=== PATIENT | female | born 1950 | race Caucasian/White ===

== ENCOUNTER 2018-09-08 16:24 | Inpatient (IN) | payer OTHER ==
[2018-09-08] MEDS ORDERED: ONDANSETRON 4 MG/2 ML VIAL ONE (17:02)
[2018-09-08] MEDS ORDERED: MORPHINE 4 MG/ML SYR ONE (17:02)
[2018-09-08 17:09] LABS: Absolute Lymphocytes (CBC) 2.2 K/uL (0.7-4.9); Absolute Monocytes 0.5 K/uL (0.1-1.3); Absolute Neutrophil 4.9 K/uL (1.8-8.0); Basophils % 0.8 % (0-1.3); Eosinophils % 1.9 % (0-4.4); Hematocrit 40.4 % (36.0-45.0); Lymphocytes % 28.2 % (15.3-44.8); MCH 36.6 pg (27.0-35.0); MCV 104.4 fL (80-100); MPV 7.9 fL (7.6-11.3); Monocytes % 6.4 % (3.3-12.3); RBC Red Blood Cell Count 3.86 M/uL (3.86-4.86)
[2018-09-08 17:10] LABS: Protime INR 0.98
[2018-09-08] MEDS ORDERED: NA CHLORIDE 0.9% 1,000 ML ONE (17:23)
[2018-09-08 17:35] LABS: ALT/SGPT 21 U/L (12-78); AST/SGOT 20 U/L (15-37); Albumin 3.9 g/dL (3.4-5.0); Alkaline Phosphatase 68 U/L (45-117); BUN Blood Urea Nitrogen 21 mg/dL (7-18); Bicarbonate 25 mmol/L (21-32); Bilirubin Direct < 0.1 mg/dL (0-0.2); Bilirubin Total 0.4 mg/dL (0.2-1.0); Glucose Level 98 mg/dL (74-106); Magnesium 2.3 mg/dL (1.8-2.4); NT PRO-BNP 175 pg/mL (<125); Potassium 4.8 mmol/L (3.5-5.1); Protein, Total 8.2 g/dL (6.4-8.2); Sodium Level 138 mmol/L (136-145); Troponin (Emerg Dept Use Only) < 0.02 ng/mL (0.0-0.045)
[2018-09-08] MEDS ORDERED: HYDROMORPHONE HCL 0.5 MG/0.5 ML INJ ONE ×2 (18:15→19:41)
[2018-09-08] MEDS ORDERED: TETANUS & DIPHTHERIA TOX,ADULT 0.5 ML VIAL ONE (18:15)
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
[2018-09-08] MEDS ORDERED: ACETAMINOPHEN 500 MG TAB PO PRN (19:31)
[2018-09-08] MEDS ORDERED: ONDANSETRON 4 MG/2 ML VIAL IV PRN (19:31)
[2018-09-08] MEDS ORDERED: HYDRALAZINE HCL 20 MG/ML VIAL IV PRN (20:15)
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
[2018-09-08 21:11] LABS: Urine Blood TRACE (NEG); Urine Glucose NEGATIVE (NEG); Urine Protein NEGATIVE (NEG); Urine Specific Gravity 1.015 (1.005-1.030)
[2018-09-08 21:23] VITALS: BMI 26.5
[2018-09-08] MEDS: MORPHINE 2 MG/ML SYR IV PRN (21:37)
[2018-09-08] MEDS: D5 0.45 NS 1,000 ML IV SCH (21:37)
[2018-09-08] MEDS ORDERED: TRAZODONE 50 MG TABLET PO PRN (22:18)
[2018-09-09] MEDS: MORPHINE 2 MG/ML SYR IV PRN ×4 (01:10→19:45)
--- NOTE | 2018-09-09 04:17 | EKG ---
Test Date: 2018-09-08 Test Time: 17:10:25 [employer] Art Teacher: LENA MEASUREMENT RESULTS: Intervals: Rate: 94 MD: 142 QRSD: 78 QT: 372 QTc: 465 [place]: P: 79 MD: 142 QRS: 80 T: 60 INTERPRETIVE STATEMENTS: Normal sinus rhythm Possible Left atrial enlargement Borderline ECG No previous ECG available for comparison Electronically Signed On 09-09-18 04:17:06 CDT by Genaro Caputo
[2018-09-09] MEDS: D5 0.45 NS 1,000 ML IV SCH ×3 (05:51→18:27)
[2018-09-09 06:06] LABS: Absolute Lymphocytes (CBC) 1.3 K/uL (0.7-4.9); Absolute Monocytes 0.7 K/uL (0.1-1.3); Absolute Neutrophil 6.3 K/uL (1.8-8.0); Basophils % 0.4 % (0-1.3); Eosinophils % 0.7 % (0-4.4); Hematocrit 38.2 % (36.0-45.0); Lymphocytes % 15.1 % (15.3-44.8); MCH 36.7 pg (27.0-35.0); MCV 104.4 fL (80-100); Monocytes % 8.7 % (3.3-12.3); RBC Red Blood Cell Count 3.66 M/uL (3.86-4.86)
[2018-09-09 06:17] LABS: Albumin 3.3 g/dL (3.4-5.0); Bilirubin Total 0.4 mg/dL (0.2-1.0); Potassium 4.3 mmol/L (3.5-5.1); Protein, Total 7.4 g/dL (6.4-8.2)
[2018-09-09] MEDS ORDERED: TRANEXAMIC ACID 1,000 MG in NA CHLORIDE 0.9% 50 ML IV ONE (13:09)
[2018-09-09] MEDS ORDERED: Ringers Lactate 1,000 ML IV ONE ×2 (14:14→16:10)
[2018-09-09] MEDS ORDERED: CEFAZOLIN/SWI 1gm 1 GM/10 ML SYR ONE (14:25)
[2018-09-09] MEDS ORDERED: SUCCINYLCHOLINE 20 MG/ML (10 ML) IV ONE (15:02)
[2018-09-09] MEDS ORDERED: ROCURONIUM 50 MG/5 ML VIAL IV ONE (15:08)
[2018-09-09] MEDS ORDERED: PROPOFOL 200 MG/20 ML VIAL IV ONE (15:08)
[2018-09-09] MEDS ORDERED: FENTANYL CITR 250 MCG/5 ML ONE (15:08)
[2018-09-09] MEDS ORDERED: DOCUSATE NA 100 MG CAP PO PRN (15:28)
[2018-09-09] MEDS ORDERED: MORPHINE/NS PCA 50 MG/50 ML PCA.SYRING IV PRN (15:28)
[2018-09-09] MEDS ORDERED: NALOXONE 0.4 MG/ML VIAL IV PRN (15:28)
[2018-09-09] MEDS ORDERED: ONDANSETRON 4 MG/2 ML VIAL IV PRN (15:28)
[2018-09-09] MEDS ORDERED: ONDANSETRON HCL 40 MG/20 ML VIAL ONE (16:36)
[2018-09-09] MEDS ORDERED: GLYCOPYRROLATE 0.2 MG/ML SYR ONE (16:36)
[2018-09-09] MEDS ORDERED: PROMETHAZINE 25 MG/ML VIAL ONE (17:25)
[2018-09-09 17:37] LABS: Hematocrit 39.1 % (36.0-45.0)
[2018-09-09] MEDS ORDERED: CEFAZOLIN/NS 1gm 1 GM/50 ML BAG IVPB SCH (18:00)
[2018-09-09] MEDS: CEFAZOLIN/SWI 1gm 1 GM/10 ML SYR IV SCH ×2 (18:32→23:37)
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
--- NOTE | 2018-09-09 19:21 | RAD REPORT ---
EXAM DESCRIPTION: RAD - Pelvis - 09/09/2018 6:21 pm CLINICAL HISTORY: Left femoral fracture FINDINGS: Left hip arthroplasty has been performed. Prosthesis is in good position. No dislocation i s noted
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
--- NOTE | 2018-09-10 01:36 | OP ---
Surgeon: Livan Thomas MD Date of Service: 09/09/2018 Preoperative Diagnosis: Left femoral neck fracture. Postoperative Diagnosis: Left femoral neck fracture. Procedure Performed: Left uncemented hemiarthroplasty. Membership Sales Manager: RENALDO Rios. Complications: None. Disposition: Recovery room, stable. Procedure In Detail: The patient was taken to the operative suite, placed in supine position, induced anesthesia. Left hip was prepped and draped in usual sterile fashion. Access through posterior approach to the hip. Hemostasis was verified. Tensor fascia trae was incised. Muscle was split longitudinally. External rotators were elevated subperiosteally. Lateralized box section created. Still reaming and broaching for a maximum of 12 mm stem. The ball measured a 43 mm and standard offset was appropriate. Permanent implant was performed. A layered closure was performed, followed by application of a sterile dressing. The patient tolerated the procedure well, was reversed from anesthesia, and taken to recovery room in stable condition. AIDE/KAILEY Voice ID: [id number] Report ID: [id number] ROSELINE
[2018-09-10] MEDS: D5 0.45 NS 1,000 ML IV SCH ×2 (05:02→11:37)
[2018-09-10] MEDS: CEFAZOLIN/SWI 1gm 1 GM/10 ML SYR IV SCH (05:02)
[2018-09-10 06:49] LABS: Hematocrit 35.9 % (36.0-45.0)
[2018-09-10 07:04] LABS: Albumin 2.9 g/dL (3.4-5.0); Bilirubin Total 0.3 mg/dL (0.2-1.0); Potassium 4.2 mmol/L (3.5-5.1)
[2018-09-10] MEDS: HYDROCODONE/APAP 7.5/325 MG TAB PO PRN (08:46)
[2018-09-10] MEDS: AMLODIPINE 5 MG TAB PO SCH (08:46)
[2018-09-10] MEDS: LISINOPRIL 20 MG TAB PO SCH (08:47)
[2018-09-10] MEDS: CITALOPRAM 10 MG TABLET PO SCH (08:48)
[2018-09-10] MEDS: RIVAROXABAN 10 MG TABLET PO SCH (11:38)
--- NOTE | 2018-09-10 13:27 | P.PN ---
Subjective Date of Service: 09/10/18 Chief Complaint: Left hip fracture Subjective: Tolerating diet, Ambulating, Improving, Doing well Physical Examination - Vital Signs Temperature: 97.6 F Blood Pressure: 109/45 Pulse: 101 Respirations: 19 Pulse Ox (%): 99
--- NOTE | 2018-09-10 17:42 | PN ---
Date of Progress Note: 09/10/2018 Subjective: The patient seen and examined. Chart reviewed and case discussed with RN. The patient doing well after surgery. Denies any further right hand pain or right arm pain. Tolerating diet wel l. Encouraged to continue incentive spirometry. Review of Systems: Negative except as above. Medications: List reviewed. Objective: Vital Signs: Temperature 97.6, heart rate 101, blood pressure 109/45, respirations 19, O 2 99% on 2 L via nasal cannula. General: Awake, alert, oriented x3, not in any acute distress, elderly female. CV: S1, S2. Peripheral pulses present. Regular rate and rhythm. Respiratory: Diminished breath sounds at the bases, otherwise moving air well. No wheezing or strid or. Gastrointestinal: Abdomen is soft, nontender, nondistended. Positive bowel sounds. Extremities: No clubbing, cyanosis, or edema. Neurologic: Nonfocal. Skin: Left hip incision site clean, dry, intact. Laboratory Data: Sodium 138, potassium 4.2, chloride 104, CO2 of 27, BUN 7, creatinine 0.8, glucose 129, calcium 8. H and H 12.9 and 35.9. Assessment: A 68-year-old female with: 1.Left femoral neck fracture. Initial encounter, closed fracture, status post open reduction and in ternal fixation. Appreciate Dr. Thomas's input. Start on PT. 2.Status post fall. 3.Essential hypertension, stable. 4.Right upper extremity pain, resolved. 5.Nicotine dependence with cigarette smoking, counseled. 6.Carotid artery disease, bilateral, stable. 7.Overweight, body mass index of 26. Plan: Start physical therapy evaluation and treatment, will likely need rehab. GI and DVT prophylax is addressed. We will continue to monitor H and H. Continue pain medications. Resume home medicati ons as appropriate. Discontinue IV fluids. SA/MODL Voice ID: [id number] Report ID: [id number]
[2018-09-11] MEDS ORDERED: NA CHLORIDE 0.9% 1,000 ML ONE (01:50)
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
[2018-09-11 05:25] LABS: Hematocrit 30.6 % (36.0-45.0)
[2018-09-11] MEDS: CITALOPRAM 10 MG TABLET PO SCH (09:52)
[2018-09-11] MEDS: AMLODIPINE 5 MG TAB PO SCH (09:52)
[2018-09-11] MEDS: LISINOPRIL 20 MG TAB PO SCH (09:52)
[2018-09-11] MEDS: RIVAROXABAN 10 MG TABLET PO SCH (09:53)
--- NOTE | 2018-09-11 16:17 | P.PN ---
Subjective Date of Service: 09/11/18 Chief Complaint: Left hip fracture Subjective: Ambulating, Improving, Working w/ PT (ready fro d/c from ortho standpoint), Doing well Physical Examination - Vital Signs Temperature: 97.0 F Blood Pressure: 138/63 Pulse: 102 Respirations: 16 Pulse Ox (%): 99
--- NOTE | 2018-09-11 21:43 | PN ---
Date of Progress Note: 09/11/2018 Subjective: The patient seen and examined. Chart reviewed and case discussed with RN. The patient doing well, working with physical therapy. Review of Systems: Negative except as above. Medications: List reviewed. Physical Examination: Vital Signs: Temperature 97, heart rate 102, blood pressure 138/63, respirations 16, O2 99% on room air. General: Awake, alert, oriented x3, not in any acute distress, elderly female. CV: S1, S2. Peripheral pulses present. Sinus tachycardia. Respiratory: Moving air well bilaterally. No wheezing or stridor. Gastrointestinal: Abdomen is soft, nontender, nondistended. Positive bowel sounds. Extremities: No clubbing, cyanosis, or edema. Laboratory Data: H and H are 11.2 and 30.6. Assessment: A 68-year-old female with: 1.Left femoral neck fracture. Initial encounter, closed, status post open reduction and internal fi xation. The patient is tolerating physical therapy. Pain is under control. 2.Status post mechanical fall. 3.Essential hypertension, stable. 4.Right upper extremity pain, resolved. 5.Nicotine dependence with cigarette smoking, counseled. 6.Carotid artery disease, bilateral stable. 7.Overweight, body mass index of 26. 8.Acute blood loss anemia. Plan: GI and DVT prophylaxis. Monitor H and H. Transfuse as needed. Continue physical therapy. R eferred to rehab. /KAILEY Voice ID: [id number] Report ID: [id number]
[2018-09-12 06:09] LABS: Hematocrit 31.7 % (36.0-45.0)
--- NOTE | 2018-09-12 09:49 | P.PN ---
Date of Service: 09/12/18 labs reviewed H/H 11.230.6 stable
[2018-09-12] MEDS: CITALOPRAM 10 MG TABLET PO SCH (10:52)
[2018-09-12] MEDS: AMLODIPINE 5 MG TAB PO SCH (10:52)
[2018-09-12] MEDS: LISINOPRIL 20 MG TAB PO SCH (10:54)
[2018-09-12] MEDS: RIVAROXABAN 10 MG TABLET PO SCH (10:54)
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
[2018-09-12] MEDS: HYDROCODONE/APAP 7.5/325 MG TAB PO PRN (20:38)
[2018-09-13] MEDS: LISINOPRIL 20 MG TAB PO SCH (08:19)
[2018-09-13] MEDS: RIVAROXABAN 10 MG TABLET PO SCH (08:19)
[2018-09-13] MEDS: CITALOPRAM 10 MG TABLET PO SCH (08:19)
[2018-09-13] MEDS: AMLODIPINE 5 MG TAB PO SCH (08:20)
[2018-09-13 08:39] VITALS: O2SAT 96
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
[2018-09-13 14:22] VITALS: BP 123/58; TEMP 97.4
== END 2018-09-13 15:50 | DRG 470 ==
LOC: ER 16:24 → ERHOLD 18:57 → 4TH 20:29 → 3RD-ICU 09-09 17:45 → 2ND 09-10 13:15
PROVIDERS: ADMIT Family Medicine; ATTEND Family Medicine
PROC: 0SRS0JA Replacement of Left Hip Joint, Femoral Surface with Synthetic Substitute, Uncemented, Open Approach (ICD-10-PCS; principal; 2018-09-09 14:00)
DX: S72.012A Unspecified intracapsular fracture of left femur, initial encounter for closed fracture (principal); V18.0XXA Pedal cycle driver injured in noncollision transport accident in nontraffic accident, initial encounter; Y93.55 Activity, bike riding; Y92.410 Unspecified street and highway as the place of occurrence of the external cause; I65.23 Occlusion and stenosis of bilateral carotid arteries; I10 Essential (primary) hypertension; F17.210 Nicotine dependence, cigarettes, uncomplicated; S60.512A Abrasion of left hand, initial encounter; E66.3 Overweight; Z68.26 Body mass index [BMI] 26.0-26.9, adult
CPT/HCPCS: 36415; 51702; 70450; 71045; 71260; 72125; 72170; 74177; 80048; 80053; 80076; 81003; 83735; 83880; 84484; 85014; 85018; 85025; 85610; 88304; 88305; 88311; 90714; 93005; 94760; 96361; 96374; 96375; 97163; 99285; J0330; J0690; J1170; J2270; J2405; J2550; J7030; Q9967

== ENCOUNTER 2018-10-31 07:22 | Day surgery (SDC) | payer OTHER ==
--- NOTE | 2018-10-30 17:19 | RAD REPORT ---
EXAM DESCRIPTION: RAD - Chest Pa And Lat (2 Views) - 10/30/2018 5:11 pm CLINICAL HISTORY: preop Chest pain. COMPARISON: Chest Single View dated 09/08/2018 TECHNIQUE: PA and lateral views of the chest were obtained. FINDINGS: The lungs are hyperexpanded compatible with COPD. The heart is upper limit of normal in si ze. No fracture or aggressive bony process. Aortic atherosclerosis. IMPRESSION: COPD without acute process identified.
[2018-10-30 17:47] LABS: Absolute Lymphocytes (CBC) 2.7 K/uL (0.7-4.9); Absolute Monocytes 0.5 K/uL (0.1-1.3); Absolute Neutrophil 3.4 K/uL (1.8-8.0); Basophils % 0.9 % (0-1.3); Eosinophils % 2.5 % (0-4.4); Hematocrit 41.8 % (36.0-45.0); Lymphocytes % 39.6 % (15.3-44.8); MCH 37.2 pg (27.0-35.0); MCV 105.5 fL (80-100); MPV 7.7 fL (7.6-11.3); RBC Red Blood Cell Count 3.96 M/uL (3.86-4.86)
[2018-10-30 17:52] LABS: Potassium 4.2 mmol/L (3.5-5.1)
[2018-10-30 17:56] LABS: Protime INR 0.94
--- NOTE | 2018-10-31 05:47 | EKG ---
Test Date: 2018-10-30 Test Time: 16:57:32 Rehab Assistant: ANNE MEASUREMENT RESULTS: Intervals: Rate: 87 NC: 140 QRSD: 78 QT: 376 QTc: 452 [place]: P: 78 NC: 140 QRS: 77 T: 78 INTERPRETIVE STATEMENTS: Normal sinus rhythm Possible Left atrial enlargement Borderline ECG Compared to ECG 09/08/2018 17:10:25 No significant changes Electronically Signed On 10-31-18 05:47:07 SPINDLE FRAME CARVER by Adelfo Mcpherson
[2018-10-31] MEDS ORDERED: NA CHLORIDE 0.9% 500 ML ONE (08:15)
[2018-10-31] MEDS ORDERED: HEPA 1000U/500MLS 1,000 UNIT/500 ML BAG IV ONE (08:49)
[2018-10-31] MEDS ORDERED: FENTANYL CITR 100 MCG/2 ML ONE (09:07)
[2018-10-31] MEDS ORDERED: MIDAZOLAM HCL 2 MG/2 ML INJ ONE (09:07)
[2018-10-31 11:05] VITALS: TEMP 97
[2018-10-31 11:44] VITALS: BP 140/62; O2SAT 98
--- NOTE | 2018-10-31 20:36 | OP ---
Date of Procedure: 10/31/2018 Surgeon: Genaro Caputo MD Chin Strap Cutter: Andre Cook. Patient admitted as an outpatient on 10/31/2018 to the analytical laboratory technician for a selective bilateral carotid ang iogram. Procedure: Selective bilateral carotid angiogram. Indication: Bilateral cerebrovascular disease, positive carotid Doppler. Description Of Procedure: The patient was prepped and draped in a routine sterile fashion, given 2 m g of Versed for IV sedation. The right common femoral artery access obtained with a 6-[place] sheath. Angiography there was normal. Angio-Seal was used to close the case. A JR4 catheter was used to s electively cannulate the right common carotid artery and the left common carotid artery. Angiography showed severe stenosis of both internal carotid arteries and the right bulb and left bulb with sever e calcification. There was some involvement of the left external carotid artery. The common carotid s were normal. There were no complications. Blood Loss: 5 cc. Postoperative Diagnosis: Cerebrovascular disease, bilateral. Plan: Plan is for bilateral CEA. I will refer her back to Dr. Smith. Billiard Table Repairer: Genaro Caputo M.D. Total Conscious Sedation: 30 minutes. DOMINGO/KAILEY Voice ID: [id number] Report ID: [id number]
== END 2018-10-31 11:30 | disposition home or self-care (01) ==
LOC: CCL 07:22
DX: I65.23 Occlusion and stenosis of bilateral carotid arteries (principal); I10 Essential (primary) hypertension; E78.5 Hyperlipidemia, unspecified; F17.210 Nicotine dependence, cigarettes, uncomplicated; F32.9 Major depressive disorder, single episode, unspecified
CPT/HCPCS: 36222; 36415; 71046; 80048; 85025; 85610; 85730; 93005; C1760; J2250; J3010